=== PATIENT | female | born 1975 | race Caucasian/White ===

== ENCOUNTER 2016-09-20 13:44 | Inpatient (IN) | payer OTHER ==
[2016-09-20 15:01] VITALS: BMI 23.8
--- NOTE | 2016-09-20 17:08 | HP ---
COWS - Scale Resting Pulse: 0= [place] 80 or Below Sweatin=Flushed/Facial Moisture Restless Observation: 1= Difficult to Sit Still Pupil Size: 1= Pupils >than Normal Bone or Joint Aches: 1= Mild Discomfort Runny Nose/ Eye Tearin= Nasal Congestion GI Upset > 30mins: 1= Stomach Cramp Tremor Observation: 1= Tremor [place], Not Seen Yawning Observation: 0= None Anxiety or Irritability: 2=Irritable/Anxious Goose Flesh Skin: 0=Smooth Skin COWS Score: 10 CIWA Score - CIWA Score Nausea/Vomitin Muscle Tremors: 2 Anxiety: 3 Agitation: 2 Paroxysmal Sweats: 3 Orientation: 0-Oriented Tacttile Disturbances: 2-Mild Itch/Numbness/Burn Auditory Disturbances: 0-None Visual Disturbances: 0-None Headache: 0-None Present CIWA-Ar Total Score: 14 Admission [facility] - HPI Chief Complaint: I need to stop using heroin and xanax and i need help. Allergies/Adverse Reactions: Allergies Allergy/AdvReac Type Severity Reaction Status Date / Time No Known Allergies Allergy Verified 09/20/16 16:49 History of Present Illness: 41 y/o f pt with a h/o heroin and xanx dep. seeking detox. Exam Limitations: No Limitations - Ebola screening Have you traveled outside of the country in the last 21 days: No Have you had contact with anyone from an Ebola affected area: No Have you been sick,other than usual withdrawal symptoms: No Do you have a fever: No - Review of Systems Constitutional: Malaise, Night Sweats, Changes in sleep, Other (restless legs / twitches) EENT: reports: No Symptoms Reported Respiratory: reports: No Symptoms reported Cardiac: reports: Other (lvh) GI: reports: Nausea, Abdominal cramping Musculoskeletal: reports: Joint Pain, Muscle Pain Integumentary: reports: Sweating Neuro: reports: Dizziness Endocrine: reports: No Symptoms Reported Hematology: reports: No Symptoms Reported Psychiatric: reports: Depressed Other Systems: Reviewed and Negative Patient History - Patient Medical History Hx Anemia: No Hx Asthma: No Hx Chronic Obstructive Pulmonary Disease (COPD): No Hx Cancer: No Hx Cardiac Disorders: Yes (L ventricle hypertrophy) Hx Congestive Heart Failure: No Hx Hypertension: Yes Hx Hypercholesterolemia: No Hx Pacemaker: No HX Cerebrovascular Accident: No Hx Seizures: No Hx Dementia: No Hx Diabetes: No Hx Gastrointestinal Disorders: No Hx Liver Disease: No Hx Genitourinary Disorders: No Hx Sexually Transmitted Disorders: No Hx Renal Disease (ESRD): No Hx Thyroid Disease: No Hx Human Immunodeficiency Virus (HIV): No Hx Hepatitis C: No Hx Depression: No Hx Suicide Attempt: No Hx Bipolar Disorder: No Hx Schizophrenia: No - Patient Surgical History Past Surgical History: No - PPD History Previous Implant?: Yes Documented Results: Negative w/o proof Implanted On Prior R Admission?: No PPD to be Administered?: Yes - Reproductive History Patient is a Female of Child Bearing Age (11 -55 yrs old): Yes Last Menstrual Period: 08/20/16 Patient : No - Smoking Cessation Smoking history: Current every day smoker Have you smoked in the past 12 months: Yes Aproximately how many cigarettes per day: 30 Cigars Per Day: 0 Hx Chewing Tobacco Use: No Initiated information on smoking cessation: Yes 'Breaking Loose' booklet given: 09/20/16 - Substance & Tx. History Hx Alcohol Use: No Hx Substance Use: Yes Hx Substance Use Treatment: Yes - Substances Abused Heroin Route: Injection Frequency: Daily Amount used: 3 bags Age of first use: 15 Date of Last Use: 09/20/16 Alprazolam (Xanax) Route: Oral Frequency: Daily Amount used: 6mg Age of first use: 17 Date of Last Use: 09/19/16 Family Disease History - Family Disease History Family Disease History: CA: Father (lymphoma) Admission Physical Exam [facility] - Vital Signs Vital Signs: Vital Signs - 24 hr 09/20/16 14:59 Temperature 97.5 F L Pulse Rate 68 Respiratory 18 Rate Blood Pressure 114/67 41 y/o f pt aox3 in nad cooperative with exam. - Physical General Appearance: Yes: Appropriately Dressed, Anxious HEENTM: Yes: EOMI, Hearing grossly Normal, Normal Voice, DEIDRA Respiratory: Yes: Chest Non-Tender, Lungs Clear, Normal Breath Sounds, No Respiratory Distress Neck: Yes: Supple, Trachea in good position Breast: Yes: Breast Exam Deferred Cardiology: Yes: Regular Rhythm, Regular Rate, S1, S2 Abdominal: Yes: Non Tender, Flat, Soft, Increased Bowel Sounds Genitourinary: Yes: Within Normal Limits Back: Yes: Decreased Range of Motion Musculoskeletal: Yes: Muscle Pain Extremities: Yes: Tremors Neurological: Yes: manufacturing support engineer II-XII NML intact, Fully Oriented, Alert, Normal Response , Finger to Nose Integumentary: Yes: Erythema (left hand >rt), Moist, Track Moe - Diagnostic (1) Opioid dependence with withdrawal Current Visit: Yes Status: Acute (2) Sedative, hypnotic or anxiolytic dependence with withdrawal, uncomplicated Current Visit: Yes Status: Chronic (3) HTN (hypertension) Current Visit: Yes Status: Chronic Qualifiers: Hypertension type: essential hypertension Qualified Code(s): I10 - Essential (primary) hypertension (4) Nicotine dependence Current Visit: Yes Status: Chronic Qualifiers: Nicotine product type: cigarettes Substance use status: uncomplicated Qualified Code(s): F17.210 - Nicotine dependence, cigarettes, uncomplicated Cleared for Admission [facility] - Detox or Rehab [facility] Level of Care: Medically Managed Detox Regimen/Protocol: Methadone/Valium S Breath Alcohol Content Breath Alcohol Content: 0 Urine Pregancy Test - Result Urine Test Results: Negative- NO Line Present Urine Drug Screen - Results Drug Screen Negative: No Urine Drug Screen Results: THC-Marijuana, STUART-Cocaine, OPI-Opiates, MDMA-Ecstasy , BZO-Benzodiazepines, MTD-Methadone, TCA-Tricyclic Antidepress
[2016-09-20] MEDS ORDERED: guaiFENesin/D-METHORPHAN HB 10 ML UNIT-DOSE CUPS PO PRN (17:29)
[2016-09-20] MEDS ORDERED: MAGNESIUM HYDROX 2400MG/30ML ORAL SUSPENSION 30 ML CUP PO PRN (17:29)
[2016-09-20] MEDS ORDERED: MAG HYDROX/AL HYDROX/SIMETH 30 ML UNIT-DOSE CUP PO PRN (17:29)
[2016-09-20] MEDS ORDERED: ACETAMINOPHEN 325 MG TABLET (FP) PO PRN (17:29)
[2016-09-20] MEDS ORDERED: diphenhydrAMINE HCL 50 MG CAPSULE PO PRN (17:29)
[2016-09-20] MEDS ORDERED: IBUPROFEN 400 MG TABLET (FP) PO PRN (17:29)
[2016-09-20] MEDS ORDERED: P-EPHED 60MG/TRIPROLIDI 2.5MG TABLET PO PRN (17:29)
[2016-09-20] MEDS ORDERED: LOPERAMIDE HCL 2 MG CAPSULE PO PRN (17:29)
[2016-09-20] MEDS ORDERED: NICOTINE POLACRILEX 4 MG GUM BC PRN (17:29)
[2016-09-20] MEDS ORDERED: MAGNESIUM CITRATE 300 ML BOTTLE PO PRN (17:29)
[2016-09-20] MEDS ORDERED: MENTHOL/PHENOL 1 EACH UD MM PRN (17:29)
[2016-09-20] MEDS ORDERED: METHADONE HCL 10 MG TABLET (FOR DETOX USE ONLY) PO ONE ×2 (18:15→23:00)
[2016-09-20] MEDS ORDERED: diazePAM 5 MG TABLET PO ONE (18:15)
[2016-09-20] MEDS: diazePAM 5 MG TABLET PO SCH (22:15)
[2016-09-20] MEDS: THIAMINE HCL 100 MG TABLET (FP) PO SCH (22:15)
[2016-09-20] MEDS: cloNIDine HCL 0.1 MG TABLET PO SCH (22:30)
[2016-09-20 23:45] LABS: URINE APPEARANCE CLOUDY; URINE BILIRUBIN NEGATIVE (NEGATIVE); URINE BLOOD NEGATIVE (NEGATIVE); URINE COLOR YELLOW; URINE GLUCOSE (UA) NEGATIVE (NEGATIVE); URINE KETONE NEGATIVE (NEGATIVE); URINE LEUK ESTERASE NEGATIVE (NEGATIVE); URINE NITRITE NEGATIVE (NEGATIVE); URINE PROTEIN NEGATIVE (NEGATIVE); URINE UROBILINOGEN NEGATIVE E.U./dl (0.2-1.0)
[2016-09-21] MEDS: diazePAM 5 MG TABLET PO SCH ×3 (05:20→22:21)
[2016-09-21] MEDS: cloNIDine HCL 0.1 MG TABLET PO SCH ×3 (05:20→22:21)
--- NOTE | 2016-09-21 07:44 | CONSULT ---
[facility] Psychiatric Consult - Data Date of interview: 09/21/16 Admission source: [facility] Identifying data: This is 41 years old female with no psychiatric hospitalization history intoxicated with: Opioids, Xanax anmd Nicotine Substance Abuse History: Smoking history: Current every day smoker. Have you smoked in the past 12 months: Yes. Aproximately how many cigarettes per day: 30. Cigars Per Day: 0. Hx Chewing Tobacco Use: No. Initiated information on smoking cessation: Yes. 'Breaking Loose' booklet given: 09/20/16. - Substance & Tx. History. Hx Alcohol Use: No. Hx Substance Use: Yes. Hx Substance Use Treatment: Yes. - Substances Abused. Heroin. Route: Injection. Frequency : Daily. Amount used: 3 bags. Age of first use: 15. Date of Last Use: . Alprazolam (Xanax). Route: Oral. Frequency: Daily. Amount used: 6mg. Age of first use: 17. Date of Last Use: 09/19/16 Medical History: Reports HTN history Psychiatric History: Patient reports history of anxiety, no medications taking prior to admission. As per computer was given Ambien 10mg pop qhs dueing detox treatment last time. As per Dr. Rolf cummings reported auditory hallucionations, on evaluation patient refusing to discuss those issues and reports she is no psychitic, with no psychiatric hospitalization history , with no history taking psychiatric medications, denies delusions and hallucinations, suicidal and homicidal ideation Physical/Sexual Abuse/Trauma History: Denies Additional Comment: Observation. Detox Care Protocol Mental Status Exam - Mental Status Exam Alert and Oriented to: Person Cognitive Function: Fair Patient Appearance: Unkempt Mood: Apprehensive Affect: Mood Congruent Patient Behavior: Cooperative Speech Pattern: Appropriate Voice Loudness: Normal Thought Process: Goal Oriented Thought Disorder: Being Controlled Hallucinations: Denies Suicidal Ideation: Denies Homicidal Ideation: Denies Insight/Judgement: Fair Sleep: Difficulty falling asleep Appetite: Weight loss Muscle strength/Tone: Normal Gait/Station: Normal Additional Comments: Observation. Detox Care Protocol Psychiatric Findings - Problem List ([place] 1, 2,3) (1) Opioid dependence with withdrawal Current Visit: Yes Status: Acute (2) Nicotine dependence Current Visit: Yes Status: Chronic Qualifiers: Nicotine product type: cigarettes Substance use status: uncomplicated Qualified Code(s): F17.210 - Nicotine dependence, cigarettes, uncomplicated (3) Sedative, hypnotic or anxiolytic dependence with withdrawal, uncomplicated Current Visit: Yes Status: Chronic (4) Drug-induced mood disorder Current Visit: Yes Status: Suspected - Initial Treatment Plan Initial Treatment Plan: Observation. Detox Care Protocol
[2016-09-21] MEDS ORDERED: METHADONE HCL 10 MG TABLET (FOR DETOX USE ONLY) PO SCH (10:00)
[2016-09-21] MEDS: hydrOXYzine PAMOATE 25 MG CAPSULE (FP) PO PRN (10:40)
[2016-09-21] MEDS: HYDROCHLOROTHIAZIDE 12.5 MG CAPSULE (FP) PO SCH (10:40)
[2016-09-21] MEDS: diazePAM 5 MG TABLET PO PRN (10:40)
[2016-09-21] MEDS: PRENATAL VITAMINS W/ FOLIC ACID TABLET (FP) PO SCH (10:40)
[2016-09-21] MEDS: NICOTINE 21 MG/24 HOURS TOPICAL PATCH TD SCH (10:41)
[2016-09-21 10:51] LABS: ALBUMIN 3.6 g/dl (3.4-5.0); ALK PHOS 76 U/L (45-117); ANION GAP 4 (8-16); BILIRUBIN,TOTAL 0.5 mg/dL (0.2-1.0); CALCIUM 9.6 mg/dL (8.5-10.1); CO2 31 mmol/L (21-32); CREATININE 0.7 mg/dL (0.55-1.02); GLUCOSE,RANDOM 114 mg/dL (74-106); SGOT/AST 13 U/L (15-37); SGPT/ALT 18 U/L (12-78); TOT PROT 6.8 g/dl (6.4-8.2)
--- NOTE | 2016-09-21 11:08 | PN ---
BHS COWS - Scale Resting Pulse: 0= [place] 80 or Below Sweatin= Chills/Flushing Restless Observation: 1= Difficult to Sit Still Pupil Size: 1= Pupils >than Normal Bone or Joint Aches: 1= Mild Discomfort Runny Nose/ Eye Tearin= Nasal Congestion GI Upset > 30mins: 1= Stomach Cramp Tremor Observation of Outstretched Hands: 1= Tremor [place], Not Seen Yawning Observation: 0= None Anxiety or Irritability: 1=Feels Anxious/Irritable Goose Flesh Skin: 0=Smooth Skin COWS Score: 8 BHS Progress Note (SOAP) Subjective: interrupted sleep, sweats, Objective: 09/21/16 11:09 Vital Signs Temperature 99 F 09/21/16 10:00 Pulse Rate 71 09/21/16 10:00 Respiratory Rate 16 09/21/16 10:00 Blood Pressure 127/72 09/21/16 10:00 O2 Sat by Pulse Oximetry (%) Laboratory Tests 09/20/16 09/21/16 09/21/16 21:19 05:30 05:30 WBC Cancelled Corrected WBC (auto) Cancelled RBC Cancelled Hgb Cancelled Hct Cancelled MCV Cancelled MCHC Cancelled RDW Cancelled Plt Count Cancelled MPV Cancelled Differential Comment Cancelled Platelet Estimate Cancelled Platelet Comment Cancelled RBC Morphology Cancelled Sodium 141 Potassium 4.2 Chloride 106 Carbon Dioxide 31 Anion Gap 4 L BUN 12 Creatinine 0.7 Creat Clearance w eGFR > 60 Random Glucose 114 H Calcium 9.6 Total Bilirubin 0.5 AST 13 L ALT 18 Alkaline Phosphatase 76 Total Protein 6.8 Albumin 3.6 Urine Color Yellow Urine Appearance Cloudy Urine pH 6.0 Ur Specific [place] 1.018 Urine Protein Negative Urine Glucose (UA) Negative Urine Ketones Negative Urine Blood Negative Urine Nitrite Negative Urine Bilirubin Negative Urine Urobilinogen Negative Ur Leukocyte Esterase Negative pt aox3 in nad ambulating Assessment: 09/21/16 11:13 ithdrawl sxs Plan: cont. detox increase fluids psych re-evaluation
--- NOTE | 2016-09-21 11:50 | EKG ---
Test Reason : Blood Pressure : / mmHG Vent. Rate : 055 BPM Atrial Rate : 055 BPM P-R Int : 136 ms QRS Dur : 092 ms QT Int : 438 ms P-R-T Axes : 061 060 050 degrees QTc Int : 419 ms SINUS BRADYCARDIA POSSIBLE LEFT ATRIAL ENLARGEMENT LEFT VENTRICULAR HYPERTROPHY ABNORMAL ECG NO PREVIOUS ECGS AVAILABLE Confirmed by KATE ÁLVAREZ, ROGE ([id number]) on 09/21/2016 11:49:58 AM Referred By: Confirmed By:ROGE LOVE MD
[2016-09-21] MEDS: THIAMINE HCL 100 MG TABLET (FP) PO SCH (22:21)
[2016-09-22] MEDS: cloNIDine HCL 0.1 MG TABLET PO SCH ×3 (05:21→22:18)
--- NOTE | 2016-09-22 10:22 | PN ---
BHS COWS - Scale Resting Pulse: 0= [place] 80 or Below Sweatin=Flushed/Facial Moisture Restless Observation: 1= Difficult to Sit Still Pupil Size: 0= Normal to Room Light Bone or Joint Aches: 1= Mild Discomfort Runny Nose/ Eye Tearin= Nasal Congestion GI Upset > 30mins: 0= None Tremor Observation of Outstretched Hands: 2= Slight Tremor Visible Yawning Observation: 0= None Anxiety or Irritability: 2=Irritable/Anxious Goose Flesh Skin: 0=Smooth Skin COWS Score: 9 BHS Progress Note (SOAP) Subjective: agitation irritable sweats anxiety I cant sleep and need to see psych for my ambien Objective: 09/22/16 10:19 Vital Signs Temperature 96.6 F L 09/22/16 10:00 Pulse Rate 65 09/22/16 10:00 Respiratory Rate 20 09/22/16 10:00 Blood Pressure 156/102 09/22/16 10:00 O2 Sat by Pulse Oximetry (%) Laboratory Tests 09/20/16 09/21/16 09/21/16 21:19 05:30 05:30 WBC Cancelled Corrected WBC (auto) Cancelled RBC Cancelled Hgb Cancelled Hct Cancelled MCV Cancelled MCHC Cancelled RDW Cancelled Plt Count Cancelled MPV Cancelled Differential Comment Cancelled Platelet Estimate Cancelled Platelet Comment Cancelled RBC Morphology Cancelled Sodium 141 Potassium 4.2 Chloride 106 Carbon Dioxide 31 Anion Gap 4 L BUN 12 Creatinine 0.7 Creat Clearance w eGFR > 60 Random Glucose 114 H Calcium 9.6 Total Bilirubin 0.5 AST 13 L ALT 18 Alkaline Phosphatase 76 Total Protein 6.8 Albumin 3.6 Urine Color Yellow Urine Appearance Cloudy Urine pH 6.0 Ur Specific [place] 1.018 Urine Protein Negative Urine Glucose (UA) Negative Urine Ketones Negative Urine Blood Negative Urine Nitrite Negative Urine Bilirubin Negative Urine Urobilinogen Negative Ur Leukocyte Esterase Negative RPR Titer 09/21/16 05:30 WBC Corrected WBC (auto) RBC Hgb Hct MCV MCHC RDW Plt Count MPV Differential Comment Platelet Estimate Platelet Comment RBC Morphology Sodium Potassium Chloride Carbon Dioxide Anion Gap BUN Creatinine Creat Clearance w eGFR Random Glucose Calcium Total Bilirubin AST ALT Alkaline Phosphatase Total Protein Albumin Urine Color Urine Appearance Urine pH Ur Specific [place] Urine Protein Urine Glucose (UA) Urine Ketones Urine Blood Urine Nitrite Urine Bilirubin Urine Urobilinogen Ur Leukocyte Esterase RPR Titer Nonreactive awake/alert ambulating no acute distress Assessment: 09/22/16 10:21 withdrawals Plan: continue detox increase fluids psych eval ordered.
[2016-09-22 10:24] LABS: MCH 29.1 pg (25.7-33.7); MCHC 33.8 g/dl (32.0-36.0); MEAN CELL VOLUME 86.2 fl (80-96); MEAN PLT VOLUME 10.2 fl (7.5-11.1); PLATELET COUNT 217 K/MM3 (134-434); RDW 13.9 % (11.6-15.6); WHITE BLOOD COUNT 6.5 K/mm3 (4.0-10.0)
[2016-09-22] MEDS: hydrOXYzine PAMOATE 25 MG CAPSULE (FP) PO PRN (10:26)
[2016-09-22] MEDS: PRENATAL VITAMINS W/ FOLIC ACID TABLET (FP) PO SCH (10:26)
[2016-09-22] MEDS: diazePAM 5 MG TABLET PO SCH ×2 (10:26→22:18)
[2016-09-22] MEDS: METHADONE HCL 5 MG TABLET (FOR DETOX USE ONLY) PO SCH (10:27)
[2016-09-22] MEDS: HYDROCHLOROTHIAZIDE 12.5 MG CAPSULE (FP) PO SCH (10:27)
[2016-09-22] MEDS: NICOTINE 21 MG/24 HOURS TOPICAL PATCH TD SCH (10:27)
--- NOTE | 2016-09-22 12:48 | PN ---
Psychiatric Progress Note Vital Signs: Vital Signs Period Temp Pulse Resp BP Sys/Vaughan Pulse Ox Last 24 Hr 96.6 F-98.4 F 64-83 16-20 108-156/58-102 Date of Session: 09/22/16 Chief Complaint:: Insomnia HPI: Patient reports insomnia, reports god response on Amnbien 10mg po qhs prior to admission Current Medications: Active Medications Generic Name Dose Route Start Last Admin Trade Name Freq PRN Reason Stop Dose Admin Acetaminophen 650 mg 09/20/16 17:29 Tylenol - PO Q4H PRN FEVER OR PAIN Al Hydroxide/Mg Hydroxide 30 ml 09/20/16 17:29 Mylanta Oral Suspension - PO Q6H PRN DYSPEPSIA Clonidine 0.1 mg 09/20/16 22:00 09/22/16 05:21 Catapres - PO 0.1 mg TID KHRIS Administration Diazepam 10 mg 09/20/16 17:29 09/21/16 10:40 Valium - PO 09/23/16 17:30 10 mg Q4H PRN Administration WITHDRAWAL(CONT SUBST) Diazepam 5 mg 09/22/16 10:00 09/22/16 10:26 Valium - PO 09/23/16 22:01 5 mg BID KHRIS Administration Diazepam 5 mg 09/24/16 10:00 Valium - PO 09/24/16 10:01 DAILY KHRIS Diphenhydramine HCl 50 mg 09/20/16 17:29 09/21/16 22:21 Benadryl - PO 50 mg HSMR1 PRN Administration INSOMNIA Eucalyptus/Menthol/Phenol/Sorbitol 1 each 09/20/16 17:29 Cepastat Lozenge - MM Q4H PRN SORE THROAT Guaifenesin 10 ml 09/20/16 17:29 Robitussin Dm - PO Q6H PRN COUGH Hydrochlorothiazide 12.5 mg 09/21/16 10:00 09/22/16 10:27 Hctz - PO 12.5 mg DAILY KHRIS Administration Hydroxyzine Pamoate 25 mg 09/20/16 17:29 09/22/16 10:26 Vistaril - PO 25 mg Q4H PRN Administration AGITATION Ibuprofen 400 mg 09/20/16 17:29 Motrin - PO Q6H PRN SEVERE PAIN Loperamide HCl 4 mg 09/20/16 17:29 Imodium - PO Q6H PRN DIARRHEA Magnesium Citrate 300 ml 09/20/16 17:29 Citroma - PO Q48H PRN CONSTIPATION Magnesium Hydroxide 30 ml 09/20/16 17:29 Milk Of Magnesia - PO DAILY PRN CONSTIPATION Methadone HCl 10 mg 09/24/16 10:00 Dolophine - PO 09/24/16 10:01 DAILY KHRIS Methadone HCl 15 mg 09/22/16 10:00 09/22/16 10:27 Dolophine - PO 09/23/16 10:01 15 mg DAILY KHRIS Administration Methadone HCl 5 mg 09/25/16 06:00 Dolophine - PO 09/25/16 06:01 DAILY@0600 KHRIS Nicotine 21 mg 09/21/16 10:00 09/22/16 10:27 Nicoderm Patch - TD 21 mg DAILY KHRIS Administration Nicotine Polacrilex 4 mg 09/20/16 17:29 Nicorette Gum - BC Q2H PRN NICOTINE REPLACEMENT RX Multivit/Folic Acid/Iron 1 tab 09/21/16 10:00 09/22/16 10:26 Vitamins (Sjr) - PO 1 tab DAILY KHRIS Administration Pseudoephedrine/Triprolidine 1 combo 09/20/16 17:29 Actifed - PO TID PRN NASAL CONGESTION Thiamine HCl 100 mg 09/20/16 22:00 09/21/16 22:21 Vitamin B1 - PO 100 mg HS KHRIS Administration Mental Status Exam - Mental Status Exam Alert and Oriented to: Person Cognitive Function: Fair Patient Appearance: Well Groomed Mood: Anxious Affect: Mood Congruent Patient Behavior: Cooperative Speech Pattern: Excessive Voice Loudness: Mildly Loud Thought Process: Goal Oriented Hallucinations: Denies Suicidal Ideation: Denies Homicidal Ideation: Denies Insight/Judgement: Fair Sleep: Difficulty falling asleep Appetite: Fair Muscle strength/Tone: Normal Gait/Station: Normal Additional Comments: Amnbien 10mg po qhs Psychiatric Treatment Plan - Problem List (1) Opioid dependence with withdrawal Current Visit: Yes (2) Nicotine dependence Current Visit: Yes Qualifiers: Nicotine product type: cigarettes Substance use status: uncomplicated Qualified Code(s): F17.210 - Nicotine dependence, cigarettes, uncomplicated (3) Sedative, hypnotic or anxiolytic dependence with withdrawal, uncomplicated Current Visit: Yes (4) Drug-induced mood disorder Current Visit: Yes Initial treatment plan: Amnbien 10mg po qhs
[2016-09-22] MEDS: diazePAM 5 MG TABLET PO PRN (13:43)
[2016-09-22] MEDS: THIAMINE HCL 100 MG TABLET (FP) PO SCH (22:18)
[2016-09-22] MEDS: ZOLPIDEM TARTRATE 10 MG TABLET (PARK CARE ONLY) PO PRN (22:19)
[2016-09-23] MEDS: cloNIDine HCL 0.1 MG TABLET PO SCH ×3 (05:19→22:29)
--- NOTE | 2016-09-23 10:12 | PN ---
BHS Progress Note (SOAP) Subjective: sweats agitation i feel much better Objective: 09/23/16 10:12 Vital Signs Temperature 97 F L 09/23/16 09:55 Pulse Rate 69 09/23/16 09:55 Respiratory Rate 18 09/23/16 09:55 Blood Pressure 151/77 09/23/16 09:55 O2 Sat by Pulse Oximetry (%) Laboratory Tests 09/20/16 09/21/16 09/21/16 21:19 05:30 05:30 WBC Cancelled Corrected WBC (auto) Cancelled RBC Cancelled Hgb Cancelled Hct Cancelled MCV Cancelled MCHC Cancelled RDW Cancelled Plt Count Cancelled MPV Cancelled Differential Comment Cancelled Platelet Estimate Cancelled Platelet Comment Cancelled RBC Morphology Cancelled Sodium 141 Potassium 4.2 Chloride 106 Carbon Dioxide 31 Anion Gap 4 L BUN 12 Creatinine 0.7 Creat Clearance w eGFR > 60 Random Glucose 114 H Calcium 9.6 Total Bilirubin 0.5 AST 13 L ALT 18 Alkaline Phosphatase 76 Total Protein 6.8 Albumin 3.6 Urine Color Yellow Urine Appearance Cloudy Urine pH 6.0 Ur Specific [place] 1.018 Urine Protein Negative Urine Glucose (UA) Negative Urine Ketones Negative Urine Blood Negative Urine Nitrite Negative Urine Bilirubin Negative Urine Urobilinogen Negative Ur Leukocyte Esterase Negative RPR Titer 09/21/16 09/22/16 05:30 07:00 WBC 6.5 Corrected WBC (auto) RBC 4.23 Hgb 12.3 Hct 36.5 MCV 86.2 MCHC 33.8 RDW 13.9 Plt Count 217 MPV 10.2 Differential Comment Platelet Estimate Platelet Comment RBC Morphology Sodium Potassium Chloride Carbon Dioxide Anion Gap BUN Creatinine Creat Clearance w eGFR Random Glucose Calcium Total Bilirubin AST ALT Alkaline Phosphatase Total Protein Albumin Urine Color Urine Appearance Urine pH Ur Specific [place] Urine Protein Urine Glucose (UA) Urine Ketones Urine Blood Urine Nitrite Urine Bilirubin Urine Urobilinogen Ur Leukocyte Esterase RPR Titer Nonreactive awake/alert ambulating no acute distress Assessment: 09/23/16 10:12 withdrawal sx Plan: continue detox increase fluids
[2016-09-23] MEDS: HYDROCHLOROTHIAZIDE 12.5 MG CAPSULE (FP) PO SCH (10:29)
[2016-09-23] MEDS: PRENATAL VITAMINS W/ FOLIC ACID TABLET (FP) PO SCH (10:29)
[2016-09-23] MEDS: METHADONE HCL 5 MG TABLET (FOR DETOX USE ONLY) PO SCH (10:30)
[2016-09-23] MEDS: diazePAM 5 MG TABLET PO SCH ×2 (10:30→22:29)
[2016-09-23] MEDS: NICOTINE 21 MG/24 HOURS TOPICAL PATCH TD SCH (10:30)
[2016-09-23] MEDS: THIAMINE HCL 100 MG TABLET (FP) PO SCH (22:29)
[2016-09-23] MEDS: ZOLPIDEM TARTRATE 10 MG TABLET (PARK CARE ONLY) PO PRN (22:29)
[2016-09-23] MEDS: hydrOXYzine PAMOATE 25 MG CAPSULE (FP) PO PRN (22:32)
--- NOTE | 2016-09-23 22:45 | PN ---
BHS Progress Note Note: bp 186/105 patient received clonidine 0.1 mg + valium 5 mg repeat bp in 2 hours around 1230 am continue detox
[2016-09-24] MEDS: cloNIDine HCL 0.1 MG TABLET PO SCH (05:27)
--- NOTE | 2016-09-24 09:07 | PN ---
BHS Progress Note (SOAP) Subjective: nausea, sweats, interrupted sleep, anxiety, tremors, no body aches Objective: 09/24/16 09:05 Vital Signs - 24 hr 09/23/16 09/23/16 09/23/16 09:55 14:42 17:41 Temperature 97 F L 97.9 F 98.3 F Pulse Rate 69 89 74 Respiratory 18 20 18 Rate Blood Pressure 151/77 169/95 125/62 09/23/16 09/23/16 09/24/16 21:48 23:58 00:30 Temperature 97.9 F Pulse Rate 88 Respiratory 20 90 H 16 Rate Blood Pressure 135/85 09/24/16 09/24/16 03:30 06:20 Temperature 96.7 F L Pulse Rate 68 Respiratory 18 16 Rate Blood Pressure 128/86 Laboratory Tests 09/20/16 09/21/16 09/21/16 21:19 05:30 05:30 WBC Cancelled Corrected WBC (auto) Cancelled RBC Cancelled Hgb Cancelled Hct Cancelled MCV Cancelled MCHC Cancelled RDW Cancelled Plt Count Cancelled MPV Cancelled Differential Comment Cancelled Platelet Estimate Cancelled Platelet Comment Cancelled RBC Morphology Cancelled Sodium 141 Potassium 4.2 Chloride 106 Carbon Dioxide 31 Anion Gap 4 L BUN 12 Creatinine 0.7 Creat Clearance w eGFR > 60 Random Glucose 114 H Calcium 9.6 Total Bilirubin 0.5 AST 13 L ALT 18 Alkaline Phosphatase 76 Total Protein 6.8 Albumin 3.6 Urine Color Yellow Urine Appearance Cloudy Urine pH 6.0 Ur Specific [place] 1.018 Urine Protein Negative Urine Glucose (UA) Negative Urine Ketones Negative Urine Blood Negative Urine Nitrite Negative Urine Bilirubin Negative Urine Urobilinogen Negative Ur Leukocyte Esterase Negative RPR Titer 09/21/16 09/22/16 05:30 07:00 WBC 6.5 Corrected WBC (auto) RBC 4.23 Hgb 12.3 Hct 36.5 MCV 86.2 MCHC 33.8 RDW 13.9 Plt Count 217 MPV 10.2 Differential Comment Platelet Estimate Platelet Comment RBC Morphology Sodium Potassium Chloride Carbon Dioxide Anion Gap BUN Creatinine Creat Clearance w eGFR Random Glucose Calcium Total Bilirubin AST ALT Alkaline Phosphatase Total Protein Albumin Urine Color Urine Appearance Urine pH Ur Specific [place] Urine Protein Urine Glucose (UA) Urine Ketones Urine Blood Urine Nitrite Urine Bilirubin Urine Urobilinogen Ur Leukocyte Esterase RPR Titer Nonreactive Assessment: 09/24/16 09:06 withdrawal sx persist Plan: cont detox, patient wishes to leave, risks of not completing dietox discussed, will sign out AMA.
--- NOTE | 2016-09-24 09:13 | DS ---
[facility] Detox Discharge Summary Admission Date: 09/20/16 Discharge Date: 09/24/16 - History Present History: Opioid Dependence, Sedative Dependence Additional Comments: nicotine dependendence - Physical Exam Results Vital Signs: Vital Signs Temperature 96.7 F L 09/24/16 06:20 Pulse Rate 68 09/24/16 06:20 Respiratory Rate 16 09/24/16 06:20 Blood Pressure 128/86 09/24/16 06:20 O2 Sat by Pulse Oximetry (%) Pertinent Admission Physical Exam Findings: withdrawal sx - Treatment Hospital Course: Detox Protocol Followed - Medication Discharge Medications: Ambulatory Orders Hydrochlorothiazide [Hctz -] 12.5 mg PO DAILY 09/20/16 - Diagnosis (1) Opioid dependence with withdrawal Current Visit: Yes Status: Acute (2) HTN (hypertension) Current Visit: No Status: Resolved Qualifiers: Hypertension type: essential hypertension Qualified Code(s): I10 - Essential (primary) hypertension (3) Nicotine dependence Current Visit: Yes Status: Chronic Qualifiers: Nicotine product type: cigarettes Substance use status: uncomplicated Qualified Code(s): F17.210 - Nicotine dependence, cigarettes, uncomplicated (4) Sedative, hypnotic or anxiolytic dependence with withdrawal, uncomplicated Current Visit: Yes Status: Chronic (5) Drug-induced mood disorder Current Visit: Yes Status: Suspected - AMA Did Patient Leave Against Medical Advice: Yes
[2016-09-24] MEDS: PRENATAL VITAMINS W/ FOLIC ACID TABLET (FP) PO SCH (09:55)
[2016-09-24] MEDS: HYDROCHLOROTHIAZIDE 12.5 MG CAPSULE (FP) PO SCH (09:55)
[2016-09-24 09:57] VITALS: BP 154/100; PULSE 86; TEMP 97.5
[2016-09-24] MEDS ORDERED: diazePAM 5 MG TABLET PO SCH (10:00)
[2016-09-24] MEDS ORDERED: METHADONE HCL 10 MG TABLET (FOR DETOX USE ONLY) PO SCH (10:00)
[2016-09-24] MEDS ORDERED: cloNIDine HCL 0.1 MG TABLET PO ONE (10:02)
[2016-09-25] MEDS ORDERED: METHADONE HCL 5 MG TABLET (FOR DETOX USE ONLY) PO SCH (06:00)
== END 2016-09-24 10:17 | disposition left against medical advice (07) | DRG 770 ==
LOC: YASAS 13:44 → Y6N 17:55
PROVIDERS: ADMIT Internal Medicine Addiction Medicine; ATTEND Internal Medicine Addiction Medicine
PROC: HZ2ZZZZ Detoxification Services for Substance Abuse Treatment (ICD-10-PCS; principal; 2016-09-20)
DX: F11.23 Opioid dependence with withdrawal (principal); F13.230 Sedative, hypnotic or anxiolytic dependence with withdrawal, uncomplicated; F17.210 Nicotine dependence, cigarettes, uncomplicated; F19.24 Other psychoactive substance dependence with psychoactive substance-induced mood disorder; I10 Essential (primary) hypertension; I51.7 Cardiomegaly
CPT/HCPCS: 36415; 80053; 81003; 85027; 86593; 93005; 93010